=== PATIENT | male | born 1985 | race African-American/Black ===

== ENCOUNTER → 2021-11-02 | Outpatient (CLI) | payer BC ==
--- NOTE | 2021-11-03 23:48 | HC ---
[facility] [place] [address] CONSULTATION Name: NILO ECHEVERRIA JR [id number] Admission: 11/02/21 Attend Phys: Shay Lima MD Discharge: Date of : 83 Report #: [id number] THIS REPORT FOR: cc: Eric JENKINS MD, Aaron MD Geha,James Galvez MD ~ DATE OF SERVICE: 11/02/2021 OUTPATIENT CLINIC EVALUATION REASON FOR CONSULTATION: Followup right lower extremity Pseudomonas aeruginosa cellulitis, lymphangitis and bacteremia. HISTORY OF PRESENT ILLNESS: The patient is a 36-year-old morbidly obese over 500 pounds, who was diagnosed with Pseudomonas aeruginosa lower extremity soft tissue infection with cellulitis and lymphangitis and associated bacteremia. This is the second episode within a year. The patient does have chronic lymphedema. Evaluation at [facility] failed to identify any abscess by ultrasound. He was too big to have imaging studies there and was discharged on cefepime via right upper extremity PICC. He has remained afebrile. Pain has lessened. Overall, feels better. He denies any cardiopulmonary, GI or complaints. He did have MRI scan end of last week, which showed no evidence of a soft tissue abscess. The patient was seen today with wound care service. The swelling has improved. Afebrile and hemodynamically stable. Obese. No distress. Right upper extremity PICC without erythema or drainage. Right lower extremity with 3+ edema, less tender, less erythematous than last visit in the hospital. No tenderness in his thigh. He does have some desquamation of the skin of his foot. LABORATORY DATA: Pending. IMPRESSION: This is a 36-year-old morbidly obese gentleman with chronic lymphedema of his right lower extremity. Second episode of pseudomonas infection with associated bacteremia. I am not finding any residual fluid collection as to the source. RECOMMENDATION: 1. We will continue cefepime for planned 4-week IV antibiotic course. 2. The patient will need further intervention for weight loss. I recommended that he be seen by his primary care for medical weight loss options. Would also have the patient evaluated by the vein clinic for targeted treatment if deemed [address] [address] CONSULTATION Name: JACKINILO Room #: [facility].#: [id number] Admission: 11/02/21 Attend Phys: Shay Lima MD Discharge: Date of : 83 Report #: [id number] appropriate. Continue to work on lymphedema control. 3. Follow up next week at wound care service facility. <ELECTRONICALLY SIGNED> By: James Sparks MD 11/03/21 [id number] James Sparks MD /nt
== END ==
LOC: HYPER 09:09
PROVIDERS: ATTEND Emergency Medicine Emergency Medical Services
DX: L03.115 Cellulitis of right lower limb (principal); L03.116 Cellulitis of left lower limb; R60.0 Localized edema; I89.0 Lymphedema, not elsewhere classified; A41.52 Sepsis due to Pseudomonas; R73.9 Hyperglycemia, unspecified; I10 Essential (primary) hypertension; E66.01 Morbid (severe) obesity due to excess calories; G47.33 Obstructive sleep apnea (adult) (pediatric); Z68.45 Body mass index [BMI] 70 or greater, adult; Z79.899 Other long term (current) drug therapy

== ENCOUNTER → 2021-11-16 | Outpatient (CLI) | payer BC ==
--- NOTE | 2021-11-17 21:00 | HC ---
[facility] [place] [address] CONSULTATION Name: NILO ECHEVERRIA JR Room #: [facility].#: [id number] Admission: 11/16/21 Attend Phys: Sam Stoll MD Discharge: Date of : 83 Report #: [id number] THIS REPORT FOR: cc: Eric JENKINS MD, Aaron MD Geha,James Galvez MD ~ DATE OF SERVICE: 11/16/2021 OUTPATIENT FOLLOW INFECTIOUS DISEASE CONSULTATION REASON FOR VISIT: Followup Pseudomonas aeruginosa cellulitis, lymphangitis and bacteremia. HISTORY OF PRESENT ILLNESS: The patient is a 36-year-old over 500 pounds diagnosed with Pseudomonas aeruginosa right lower extremity soft tissue infection associated bacteremia. He completed [address] imaging showed no evidence of abscess. He has longstanding lymphedema issues. This has been a recurrent problem. He has had now a second bacteremia due to Pseudomonas. No evidence of other GI or issues. Patient has no pain. His swelling has stabilized. He has not followed up with Lymphedema Clinic yet as he still is on his antibiotics. REVIEW OF SYSTEMS: No cardiopulmonary, GI or complaints. PHYSICAL EXAMINATION: GENERAL: He is afebrile and hemodynamically stable. Right upper extremity PICC without erythema or drainage. Right lower extremity edema 3+ with minimal tenderness. No active skin lesions. LABORATORY DATA: Pending. IMPRESSION: This is a 36-year-old morbidly obese gentleman with chronic lymphedema and right lower extremity cellulitis and pseudomonas bacteremia. No evidence of abscess. He will finish his course of cefepime this week. Continue with weight loss program and begin lymphedema compression program. He will also be seen by the Vein Clinic. RECOMMENDATION: We will await repeat laboratory studies now in 2 weeks and have him follow up on a virtual visit at that time. Reasonable for patient to return to work after completing his course of therapy. <ELECTRONICALLY SIGNED> By: James Sparks MD 11/17/21 2100 [id number] James Sparks MD /nt
== END ==
LOC: HYPER 08:23
PROVIDERS: ATTEND Emergency Medicine
DX: I89.0 Lymphedema, not elsewhere classified (principal); L03.115 Cellulitis of right lower limb; R60.0 Localized edema; A41.52 Sepsis due to Pseudomonas; R73.9 Hyperglycemia, unspecified; I10 Essential (primary) hypertension; J45.909 Unspecified asthma, uncomplicated; G47.30 Sleep apnea, unspecified; E66.01 Morbid (severe) obesity due to excess calories; Z68.45 Body mass index [BMI] 70 or greater, adult